=== PATIENT | female | born 1985 | race Caucasian/White ===

== ENCOUNTER 2019-01-28 18:49 | Emergency (ER) | payer OTHER, MEDICAID, SELFPAY ==
[2019-01-28 18:52] VITALS: BP 105/73; PULSE 97; RESP 15; TEMP 37.3; O2SAT 96; BMI 21.9
--- NOTE | 2019-01-28 19:05 | DI.RAD.S_ITS ---
PROCEDURE: XR HAND LT MIN 3V INDICATIONS: cut with knife#4, #5 TECHNIQUE: 3 views of the hand(s) acquired. COMPARISON: None. FINDINGS: Bones: No fractures or dislocations. Carpal bones are normally aligned. No suspicious bony lesions. Soft tissues: No suspicious soft tissue calcifications. IMPRESSION: No acute fracture. No osseous lesion. If clinical suspicion and/or symptoms persist, further assessment with repeat plainfilms, or advanced imaging (e.g., CT, MRI, or bone scan) may be helpful for further assessment. Dictated by: Alpesh Corbin M.D. on 01/28/2019 at 19:29 Approved by: Alpesh Corbin M.D. on 01/28/2019 at 19:31
[2019-01-28] MEDS: IBUPROFEN 400 MG TABLET PO (19:18)
[2019-01-28] MEDS: AMOXICILLIN/CLAV 875/125 MG 1 TAB PO (21:48)
--- NOTE | 2019-01-28 21:48 | ED_ITS ---
HPI - Wound/Laceration General Chief Complaint: Wound/Laceration Stated Complaint: L 5th finger lac w/ tendon invovment Time Seen by Provider: 01/28/19 20:29 Source: patient and family Mode of arrival: ambulatory Limitations: no limitations History of Present Illness HPI narrative: 33-year-old female nonsmoker and otherwise healthy presents with family friends for evaluation of a deep laceration to the 5th finger of her left hand. She was at work and using a sharp knife when it slipped and caused this laceration. Her tetanus is up-to-date. She has an inability to flex her left pinky and was evaluated at an outside clinic, they suspected tendon involvement and sent her here for definitive care. She has some numbness to the tip of her 5th finger. Additionally she was bitten on the dorsum of her right hand by a cat yesterday and has some minimal erythema and swelling. She has no systemic findings such as fever, chills nor nausea or vomiting. Onset (ago): hour(s) Extremity Location: Left: hip Place: home Patient tetanus UTD: Yes Context: accidental Associated symptoms: pain, loss of feeling/numbness and unable to move injured part Treatments prior to arrival: bandage Related Data Previous Rx's Medication Instructions Recorded amoxicillin-pot clavulanate 1 tab PO BID 14 Days #28 tab 01/28/19 [Augmentin] Allergies Allergy/AdvReac Type Severity Reaction Status Date / Time No Known Drug Allergies Allergy Verified 01/28/19 21:20 Review of Systems Constitutional Denies chills, Denies fever(s), Denies lethargy and Denies weakness Eyes Denies change in vision, Denies eye discharge, Denies irritation and Denies loss of vision ENT Ears, Nose, Mouth, and Throat: Denies change in voice, Denies neck pain and Denies sore throat Cardiovascular Denies chest pain, Denies irregular heart rhythm, Denies lightheadedness, Denies palpitations, Denies dyspnea, Denies dyspnea on exertion and Denies orthopnea Respiratory Denies cough, Denies dyspnea, Denies dyspnea on exertion and Denies wheezing Gastrointestinal Gastrointestinal: Denies abdominal pain, Denies change in bowel habits, Denies diarrhea, Denies nausea and Denies vomiting Genitourinary Denies hematuria, Denies flank pain, Denies urinary incontinence and Denies urinary urgency Musculoskeletal Reports limited range of motion and Denies neck pain Integumentary/Breasts Denies pruritus, Reports erythema, Denies rash and Denies wounds Neurologic Denies confusion, Denies loss of vision and Denies weakness Psychiatric Denies anxiety, Denies confusion, Denies depression, Denies homicidal ideation and Denies suicidal ideation Endocrine Denies palpitations Hematologic/Lymphatic Denies easy bruising Allergic/Immunologic Denies wheezing Exam Narrative Exam Narrative: GEN: AOx3 and in mild distress EYES: Pupils are equal, round, and reactive to light and accommodation. Ex traoccular muscles are intact bilaterally. There is no subconjunctival hemorrhage or exudate. CHEST: Lungs are clear to auscultation bilaterally and free of wheezes, rales, or rhonchi. Heart rate is regular rhythm, there are no murmurs, clicks, rubs, or gallops. There is no chest wall tenderness. ABD: Abdomen is soft and nontender. There is no guarding or rebound. Bowel sounds are normal in all 4 quadrants. There is no mass or organomegaly. EXT: Right hand has small puncture on the dorsum with some surrounding erythema and swelling. No pain on deep palpation of palmar surface. No drainage, no lymphangitis. Left 5th finger has deep laceration overlying the proximal interphalangeal joint extending laterally with active bleeding. It is sterilely prepped and viewed under a bloodless field and though no tendon is visualized she has complete inability to flex her finger. Sutures placed as stated, additional 1 cm laceration on volar aspect of 4th finger SKIN: Warm, pink, and dry. No erythema or rash Initial Vital Signs Initial Vital Signs: Vital Signs Temperature 99.1 F 01/28/19 18:52 Pulse Rate 97 H 01/28/19 18:52 Respiratory Rate 15 01/28/19 18:52 Blood Pressure 105/73 01/28/19 18:52 Pulse Oximetry 96 01/28/19 18:52 Procedures Laceration Repair Laceration 1: Side (If applicable): left Size (cm): 2 Description: stellate Depth: simple, single layer and involves tendon Pre-repair: wound explored Skin layer closed with: nylon Size (cm): 5-0 Number of sutures: 4 Technique: simple, interrupted Laceration 2: Site: hand Side (If applicable): left Size (cm): 1 Description: linear Depth: simple, single layer Local Anesthetic: lidocaine 1% and with bicarb Amount of anesthesia used (mL): 3 Pre-repair: wound explored Skin layer closed with: nylon Size (cm): 5-0 Number of sutures: 4 Technique: simple, interrupted Nerve Block Nerve Block 1: Time out performed: No Local Anesthetic: lidocaine 1% and with bicarb Amount of anesthesia used (mL): 3 Side: left Nerve Blocks: digital Procedure Successful: Yes Patient Tolerated Procedure: Well Complications: none Course Orders Ordered: ED Orders 01/28/19 19:05 XR hand LT min 3V Stat Discontinued Medications Amoxicillin/Clavulanate Potassium (Augmentin 875-125 Mg) 1 tab PO NOW ONE Stop: 01/28/19 21:24 Last Admin: 01/28/19 21:48 Dose: 1 tab Ibuprofen (Advil) 400 mg PO NOW ONE Stop: 01/28/19 19:07 Last Admin: 01/28/19 19:18 Dose: 400 mg Consultations Consultation #1: discussed with ortho, recommend ABX, sutures, splinting, close follow up Vital Signs - 8 hr 01/28/19 18:52 01/28/19 21:50 Temperature 99.1 F Pulse Rate 97 H 116 H Respiratory Rate 15 18 Blood Pressure 105/73 Blood Pressure [Right Arm] 108/77 Pulse Oximetry 96 94 Discharge Plan Departure Patient Disposition: Home Clinical Impression: Laceration Flexor tendon laceration of hand with open wound Qualifiers: Encounter type: initial encounter Laterality: left Qualified Code(s): S66.822A - Laceration of other specified muscles, fascia and tendons at wrist and hand level, left hand, initial encounter Cat bite of hand Qualifiers: Encounter type: initial encounter Laterality: right Qualified Code(s): S61.451A - Open bite of right hand, initial encounter Discharge Date/Time: 01/28/19 21:58 Interventions: ED Discharge Assessment Last Done: 01/28/19 21:58 Activity Restrictions/Additional Instructions: *You have been diagnosed with [tendon laceration left 5th finger, cat bite right] *What to do: *Take medications as directed *Follow up with your primary care provider in 2-3 days, call for an appointment. Let them know you were seen in the Emergency Department and that we ask that you be seen in follow up *Return to ER if you should have any new, worsening or concerning symptoms Prescriptions: New amoxicillin-pot clavulanate [Augmentin] 875-125 mg tablet 1 tab PO BID 14 Days Qty: 28 RF: 0 Referrals: Yemi Moreno MD [Physician] -
[2019-01-28 21:50] VITALS: BP 108/77; PULSE 116; RESP 18; O2SAT 94
--- NOTE | 2019-01-29 10:08 | PC.NURSE ---
Pt called stating she had lost her abx prescription. Reviewed chart, script for augmentin 875/125mg 1 po bid x 14 days called into [facility] in [place].
== END 2019-01-28 21:58 | disposition home or self-care (01) ==
PROVIDERS: Emergency Provider Emergency Medicine
DX: S61.217A Laceration without foreign body of left little finger without damage to nail, initial encounter (principal); S66.822A Laceration of other specified muscles, fascia and tendons at wrist and hand level, left hand, initial encounter; S61.451A Open bite of right hand, initial encounter; W26.0XXA Contact with knife, initial encounter; Y99.0 Civilian activity done for income or pay
CPT/HCPCS: 12001; 12041; 64450; 73130; 99283

== ENCOUNTER 2019-02-15 09:00 | Emergency (ER) | payer OTHER, MEDICAID, SELFPAY ==
[2019-02-15 09:08] VITALS: BP 93/57; PULSE 91; RESP 18; TEMP 36.4; O2SAT 95
--- NOTE | 2019-02-15 09:37 | ED_ITS ---
HPI - Wound/Laceration General Chief Complaint: Wound/Laceration Stated Complaint: head injury Time Seen by Provider: 02/15/19 09:02 Source: patient Mode of arrival: ambulatory Limitations: no limitations History of Present Illness HPI narrative: 33-year-old female nonsmoker presents with a friend of the family for evaluation of a head injury. The patient has been known to sleep walk and woke up as she was beginning to fall down the lower half of a flight of stairs, she struck her head on a hard object at the bottom. She denies any head neck or back pain. She denies any other injury. She denies any alcohol or street drugs. She takes no blood thinners. She has full recall of the event. She denies any loss of consciousness, nausea or vomiting. She is acting at baseline per family friend Onset (ago): minute(s) Location: scalp 1. stellate laceration Place: home Patient tetanus UTD: Yes Context: accidental Associated symptoms: none Related Data Home Medications Medication Instructions Recorded Confirmed chlordiazepoxide HCl 1 dose PO DIRECTED 02/15/19 02/15/19 hydrocodone-acetaminophen 1 tab PO PRN PRN 02/15/19 02/15/19 sertraline 50 mg PO QPM 02/15/19 02/15/19 Allergies Allergy/AdvReac Type Severity Reaction Status Date / Time No Known Drug Allergies Allergy Verified 02/15/19 09:08 Review of Systems Constitutional Denies chills, Denies fever(s), Denies lethargy and Denies weakness Eyes Denies change in vision, Denies eye discharge, Denies irritation and Denies loss of vision ENT Ears, Nose, Mouth, and Throat: Denies change in voice, Denies neck pain and Denies sore throat Cardiovascular Denies chest pain, Denies irregular heart rhythm, Denies lightheadedness, Denies palpitations, Denies dyspnea, Denies dyspnea on exertion and Denies orthopnea Respiratory Denies cough, Denies dyspnea, Denies dyspnea on exertion and Denies wheezing Gastrointestinal Gastrointestinal: Denies abdominal pain, Denies change in bowel habits, Denies diarrhea, Denies nausea and Denies vomiting Genitourinary Denies hematuria, Denies flank pain, Denies urinary incontinence and Denies urinary urgency Musculoskeletal Denies neck pain Integumentary/Breasts Denies pruritus, Denies erythema, Denies rash and Reports wounds Neurologic Denies confusion, Denies loss of vision and Denies weakness Psychiatric Denies anxiety, Denies confusion, Denies depression, Denies homicidal ideation and Denies suicidal ideation Endocrine Denies palpitations Hematologic/Lymphatic Denies easy bruising Allergic/Immunologic Denies wheezing Exam Narrative Exam Narrative: GENERAL: Pleasant 33-year-old female, resting comfortably, A&O x3, GCS 15 HEAD: 9 cm highly irregular stellate laceration with maceration on the left occipital region. Very minimal active bleeding, no evidence of galea defect or skull fracture EYES: Pupils equal round and reactive. Extraocular motions intact. No scleral icterus. No injection or drainage. ENT: Nose without bleeding, purulent drainage or septal hematoma. Throat without erythema, tonsillar hypertrophy or exudate. Uvula midline. Airway patent. NECK: Trachea midline. No JVD or lymphadenopathy. Supple, nontender, no meningeal signs. CARDIOVASCULAR: Regular rate and rhythm without murmurs, gallops, or rubs. RESPIRATORY: Clear to auscultation. Breath sounds equal bilaterally. No wheezes, rales, or rhonchi. GASTROINTESTINAL: Abdomen soft, non-tender, nondistended. No hepato- splenomegaly, or palpable masses. No guarding. EXTREMITIES: No clubbing, cyanosis, or edema. No joint tenderness, effusion, or edema noted. BACK: Nontender without deformity or crepitance. No flank tenderness. NEURO: AOx3. SKIN: No rash or erythema. Initial Vital Signs Initial Vital Signs: Vital Signs Temperature 97.6 F 02/15/19 09:08 Pulse Rate 91 H 02/15/19 09:08 Respiratory Rate 18 02/15/19 09:08 Blood Pressure 93/57 L 02/15/19 09:08 Pulse Oximetry 95 02/15/19 09:08 Procedures Laceration Repair Laceration 1: Site: scalp Side (If applicable): left Size (cm): 9 Description: stellate, irregular and clean Depth: involves muscle layer Local Anesthetic: lidocaine 1% and with epi Amount of anesthesia used (mL): 6 Pre-repair: wound explored, irrigated extensively and wound margins revised Skin layer closed with: brannon Course Orders Ordered: ED Orders 02/15/19 09:35 CT head/brain wo con Stat Vital Signs - 8 hr 02/15/19 11:10 Temperature 97.6 F Pulse Rate 84 Respiratory Rate 18 Blood Pressure 91/62 Pulse Oximetry 96 MDM - Wound/Laceration Imaging Data CT scan - head: Radiologist's impression: [address] [address] [address] Scan Report Signed Patient: Lety Virgen [facility]#: [id number] : 1985Acct:[id number] Age/Sex: 33 / FDate of Service: 02/15/19 Loc: ED Accession Number: [id number] Procedure: CT head/brain wo con Ordering Provider: Leandro Nunez D.O. PROCEDURE: CT HEAD/BRAIN WO CON INDICATIONS: fall, head injury TECHNIQUE: Noncontrast 4.5 mm thick angled axial sections acquired from the foramen magnum to the vertex, with coronal and sagittal reformats. For radiation dose reduction, the following was used: automated exposure control, adjustment of mA and/or kV according to patient size. COMPARISON: None. FINDINGS: Image quality: Excellent. CSF spaces: Basal cisterns are patent. No extra-axial fluid collections. Ventricles are normal in size and shape. Brain: No midline shift. No intracranial masses or hemorrhage. Lee-white matter interface is normal. Skull and face: Calvarium and visualized facial bones are intact, without suspicious lesions. Multiple skin brannon are seen overlying the posterior left parietal region with underlying soft tissue air and edema. There may be minimal debris within this area. Sinuses: Visualized sinuses and mastoids are clear. IMPRESSION: 1. Unremarkable head CT. No acute intracranial hemorrhage. 2. Postoperative changes of the scalp overlying the left parietal region. No underlying fractures. Dictated by: Nii Henry M.D. on 02/15/2019 at 9:03 Approved by: Nii Henry M.D. on 02/15/2019 at 9:05 Discharge Plan Departure Patient Disposition: Home Clinical Impression: Laceration Head injury due to trauma Qualifiers: Encounter type: initial encounter Qualified Code(s): S09.90XA - Unspecified injury of head, initial encounter Discharge Date/Time: 02/15/19 11:10 Interventions: ED Discharge Assessment Last Done: 02/15/19 11:10 Instructions: DI for Laceration Repair Activity Restrictions/Additional Instructions: *You have been diagnosed with [ head injury with laceration repair ] *What to do: *Take medications as directed *Follow up with your primary care provider in 2-3 days, call for an appointment. Let them know you were seen in the Emergency Department and that we ask that you be seen in follow up *Return to ER if you should have any new, worsening or concerning symptoms Prescriptions: No Action hydrocodone-acetaminophen 5-325 mg tablet 1 tab PO PRN PRN (Reason: pain) RF: 0 chlordiazepoxide HCl 10 mg capsule 1 dose PO DIRECTED RF: 0 sertraline 50 mg tablet 50 mg PO QPM RF: 0
[2019-02-15 10:48] VITALS: BP 91/62; PULSE 84; RESP 16; O2SAT 96
[2019-02-15 11:10] VITALS: BP 91/62; PULSE 84; RESP 18; TEMP 36.4; O2SAT 96
--- NOTE | 2019-02-15 11:13 | CM.DANOTE ---
patient discharged with friend, ambulatory. REAP booklet in hand, splint remains in place that pt entered with.
== END 2019-02-15 11:10 | disposition home or self-care (01) ==
LOC: ED 09:45
PROVIDERS: Emergency Provider Emergency Medicine
DX: S01.01XA Laceration without foreign body of scalp, initial encounter (principal); W10.8XXA Fall (on) (from) other stairs and steps, initial encounter
CPT/HCPCS: 12004; 70450; 99283; 99284

== ENCOUNTER → 2019-08-15 14:20 | Outpatient (CLI) | payer OTHER, SELFPAY ==
--- NOTE | 2019-08-15 | DI.MRI.S_ITS ---
PROCEDURE: MR HAND LT WO CON INDICATIONS: Pain in left hand TECHNIQUE: Noncontrast coronal T1 spin echo and T2 fast spin echo with fat saturation, axial proton density fast spin echo and T2 fast spin echo with fat saturation, sagittal T1 spin echo and STIR through the hand and fingers. COMPARISON: [facility], CR, XR HAND LT MIN 3V, 01/28/2019, 19:09. FINDINGS: Image quality: Diagnostic. Bones: The bones are normally aligned, without marrow contusions or fractures. No intra-osseous lesions. Interphalangeal joint(s): The accessory and proper collateral ligaments appear intact. The volar plate demonstrates normal morphology. The extensor central slips appear intact on sagittal images. Metacarpophalangeal joint(s): The accessory and proper collateral ligaments appear intact, as well as the volar plate and adjacent deep transverse metacarpal ligaments. The sagittal bands of the extensor self appear normal. Extensor apparatus: The central slips insert normally on the middle phalangeal base. There is nonvisualization of the conjoint and terminal tendons of the fifth digit at their insertion on the distal phalangeal base suggestive of laceration no retraction of the tendon given patient's history of injury in this area. More proximal portions of the extensor tendons appear normal. Flexor apparatus: The flexor digitorum superficialis and profundus tendons both appear intact. All annular and cruciform pulleys appear intact, without adjacent soft tissue edema. Soft tissues: Visualized muscles demonstrate normal bulk and internal signal. No intramuscular masses identified. No ganglion cysts. IMPRESSION: 1. Finding is concerning for ruptured and retracted distal conjoint tendon and terminal tendon of the fifth digit extensor apparatus at their insertions on the fifth distal phalangeal base. Central slip inserts normally at fifth middle phalangeal base. 2. No marrow signal abnormality. No fracture or dislocation. Rest of the extensor and flexor tendons of the left hand are grossly intact. Dictated by: Alex Long M.D. on 08/15/2019 at 16:36 Approved by: Alex Long M.D. on 08/15/2019 at 16:49
== END ==
PROVIDERS: Visit Provider Orthopaedic Surgery
DX: M79.642 Pain in left hand (principal)
CPT/HCPCS: 73218